=== PATIENT | male | born 1980 | race Caucasian/White ===

== ENCOUNTER 2023-12-23 13:46 | Emergency (ER) | payer SELFPAY ==
[~2023-12-23] VITALS: Ht 157.5 cm; Wt 90.7 kg
[2023-12-23 14:26] VITALS: BP 134/91; PULSE 80; RESP 16; TEMP 98; O2SAT 99
== END 2023-12-23 17:05 | disposition home or self-care (01) ==
LOC: MED 13:46
DX: R60.9 Edema, unspecified (principal); R22.42 Localized swelling, mass and lump, left lower limb; Z79.899 Other long term (current) drug therapy
CPT/HCPCS: 93971; 99284